=== PATIENT | male | born 1995 | race Caucasian/White ===

== ENCOUNTER 2020-02-08 18:32 | Emergency (ER) | payer OTHER, MEDICAID ==
[~2020-02-08] VITALS: Ht 182.9 cm; Wt 87.0 kg
[2020-02-08 20:19] VITALS: BP 127/62
== END 2020-02-09 01:40 | disposition left against medical advice (07) ==
LOC: ER 18:32
DX: L55.0 Sunburn of first degree (principal); M79.672 Pain in left foot; M79.671 Pain in right foot; Z59.0 Homelessness
CPT/HCPCS: 99281